=== PATIENT | male | born 2000 | race Caucasian/White ===

== ENCOUNTER 2021-01-15 21:52 | Emergency (ER) | payer OTHER, BC ==
[2021-01-15] MEDS ORDERED: Boostrix 0.5 ML (Tdap) VIAL ONE (22:59)
== END 2021-01-15 23:05 | disposition home or self-care (01) ==
LOC: ERS 21:52
DX: S67.190A Crushing injury of right index finger, initial encounter (principal); S67.192A Crushing injury of right middle finger, initial encounter; S67.21XA Crushing injury of right hand, initial encounter; Z23 Encounter for immunization; W20.8XXA Other cause of strike by thrown, projected or falling object, initial encounter; Y92.89 Other specified places as the place of occurrence of the external cause; Y99.0 Civilian activity done for income or pay
CPT/HCPCS: 90471; 90715